=== PATIENT | female | born 1940 | race Caucasian/White ===

== ENCOUNTER 2020-03-23 21:02 | Emergency (ER) | payer MEDICARE ==
--- NOTE | 2020-03-23 21:45 | RAD ---
EXAM DESCRIPTION: Pelvis CLINICAL HISTORY: 79 years Female hip pain COMPARISON: None TECHNIQUE: AP view of the pelvis was obtained. FINDINGS: Fracture trochanteric region left hip. Superposition of fracture fragments. Superior and lateral displacement distal fragment anterior fracture fragment. Satisfactory articulation femoral heads bilaterally with acetabular regions. No fracture right hip. Marked constipation. IMPRESSION: Trochanteric fracture left hip. Marked constipation. Electronically signed by: Radhika Altamirano MD 03/23/2020 9:43 PM CDT
[2020-03-23] MEDS: ONDANSETRON INJ 4 MG/2 ML VIAL IV ONE (22:07)
[2020-03-23] MEDS: MORPHINE SULFATE INJ 10 MG/ML VIAL IV ONE (22:08)
--- NOTE | 2020-03-23 22:25 | ED.PDOC ---
History of Present Illness - General Chief Complaint: Trauma Stated Complaint: left hip pain Time Seen by Provider: 03/23/20 21:07 - History of Present Illness Initial Comments: 79 y/o female with L hip pain comes by ambulance from [place]. At baseline she walks and gets around well. She has dementia and isn't able to carry on a meaningful conversation. Review of Systems - Review of Systems Unable to Obtain Due To: dementia Family Medical History - Family History Mother Family History: Unknown Physical Exam - Physical Exam General Appearance: Anxious, Frail Eye Exam: bilateral normal Ears, Nose, Throat: hearing grossly normal Neck: non-tender, full range of motion, supple, normal inspection Respiratory: chest non-tender, lungs clear, normal breath sounds, no respiratory distress, no accessory muscle use Cardiovascular/Chest: regular rate, rhythm, no edema, no JVD, no murmur Gastrointestinal/Abdominal: normal bowel sounds, non tender, soft, no organomegaly Back Exam: no vertebral tenderness Extremity: other - holds her L leg flexed at hip and knee Neurologic: no motor/sensory deficits, disoriented x 3, other - awake Progress - Progress Progress: 03/23/20 22:[address] Kline at [facility]. He accepts patient in transfer Departure - Departure Clinical Impression: Hyponatremia Fracture of hip Qualifiers: Encounter type: initial encounter Fracture type: closed Laterality: left Qualified Code(s): S72.002A - Fracture of unspecified part of neck of left femur, initial encounter for closed fracture Dementia Qualifiers: Dementia type: unspecified type Dementia behavioral disturbance: without behavioral disturbance Qualified Code(s): F03.90 - Unspecified dementia without behavioral disturbance Disposition: Transfer to Hospital Condition: Fair Referrals: Kamran Lynn MD [Primary Care Provider] - 1-2 Weeks
[2020-03-23 23:03] VITALS: BP 104/71; TEMP 98.1; O2SAT 98
== END 2020-03-23 23:05 | disposition short-term general hospital (02) ==
LOC: ER 21:02
DX: S72.002A Fracture of unspecified part of neck of left femur, initial encounter for closed fracture (principal); F03.90 Unspecified dementia, unspecified severity, without behavioral disturbance, psychotic disturbance, mood disturbance, and anxiety; E87.1 Hypo-osmolality and hyponatremia; X58.XXXA Exposure to other specified factors, initial encounter; Y92.9 Unspecified place or not applicable
CPT/HCPCS: 36415; 72170; 80048; 85025; J2270; J2405